=== PATIENT | female | born 1995 | race Caucasian/White ===

== ENCOUNTER 2017-09-22 09:48 | Emergency (ER) | payer BC, OTHER ==
[~2017-09-22] VITALS: Ht 170.2 cm; Wt 45.5 kg
[2017-09-22] MEDS ORDERED: POLY17PO5 PO (10:11)
[2017-09-22] MEDS ORDERED: ERYT250C8 PO (10:11)
[2017-09-22] MEDS ORDERED: METO5TAB57 PO (10:11)
[2017-09-22] MEDS ORDERED: SODIUM CHLORIDE 0.9% 1,000ML IVBOLUS ONE ×2 (10:30→11:30)
[2017-09-22] MEDS ORDERED: ACETAMINOPHEN 500 MG TABLET ONE (10:31)
[2017-09-22] MEDS ORDERED: FAMOTIDINE 20 MG/2 ML ONE (10:33)
[2017-09-22] MEDS ORDERED: ONDANSETRON 2MG/ML, 2ML ONE (10:33)
[2017-09-22 10:49] LABS: MEAN CORPUSCULAR HEMOGLOBIN 31.8 pg (27.0-34.8); MEAN CORPUSCULAR HGB CONC 33.4 g/dL (32.4-35.8); MEAN CORPUSCULAR VOLUME 95.3 fL (80-100); MEAN PLATELET VOLUME 8.1 fL (7.4-10.4); PLATELET COUNT 211 x10^3/uL (130-400); RED BLOOD COUNT 4.18 x10^6/uL (3.82-5.3); RED CELL DISTRIBUTION WIDTH 14.7 % (9.6-15.2)
[2017-09-22 10:57] VITALS: BP 101/64
[2017-09-22 11:00] LABS: ALANINE AMINOTRANSFERASE 24 U/L (12-78); ALBUMIN 3.5 g/dL (3.4-5.0); ANION GAP 7 mmol/L (5-15); CALCIUM 7.8 mg/dL (8.5-10.1); CHLORIDE 105 mmol/L (98-107); CREATININE 0.52 mg/dL (0.55-1.02)
[2017-09-22] MEDS ORDERED: ONDANSETRON 2MG/ML, 2ML IVPush ONE (11:00)
[2017-09-22] MEDS ORDERED: FAMOTIDINE 20 MG/2 ML IVPush ONE (11:00)
[2017-09-22] MEDS ORDERED: ACETAMINOPHEN 500 MG TABLET PO ONE (11:00)
[2017-09-22 11:05] LABS: ALKALINE PHOSPHATASE 61 U/L (45-117); BILIRUBIN,TOTAL 0.9 mg/dL (0.2-1.0); TOTAL PROTEIN 6.4 g/dL (6.4-8.2)
[2017-09-22 11:06] LABS: RAPID INFLUENZA A Negative (Negative); RAPID INFLUENZA B Negative (Negative)
[2017-09-22 11:10] LABS: MD YES
[2017-09-22] MEDS ORDERED: CALC1CAP8 PO (11:12)
[2017-09-22] MEDS ORDERED: DIPH12.532 PO (11:12)
[2017-09-22] MEDS ORDERED: ALEN70TA3 PO (11:12)
[2017-09-22] MEDS ORDERED: MULT-478 PO (11:12)
[2017-09-22] MEDS ORDERED: RISP0.5T3 PO (11:12)
[2017-09-22] MEDS ORDERED: PHOS118S17 PO (11:12)
[2017-09-22] MEDS ORDERED: LORA1TAB PO (11:12)
[2017-09-22] MEDS ORDERED: ACET325T14 PO (11:12)
[2017-09-22] MEDS ORDERED: MIRT45TA PO (11:12)
[2017-09-22] MEDS ORDERED: FERR324T8 PO (11:12)
[2017-09-22 11:13] LABS: BAND#(MANUAL) 0.68 x10^3/uL; BANDS%(MANUAL) 13 % (0-7); SEG#(MANUAL) 4.47 x10^3/uL (1.8-6.8); SEGS% (MANUAL) 86 % (42-75)
[2017-09-22 11:14] LABS: MONOS#(MANUAL) 0.05 x10^3/uL (0.3-2.7); MONOS% (MANUAL) 1 % (2-9)
[2017-09-22 11:15] LABS: <PLATELET ESTIMATE> ADEQUATE; <PLT MORPHOLOGY> NORMAL PLT MORPH; ANISOCYTOSIS 1+
[2017-09-22 11:39] LABS: MICROSCOPIC NOT IND
[2017-09-22 11:45] LABS: CULTURE INDICATED? NO
[2017-09-22] MEDS ORDERED: SODIUM CHLORIDE FLUSH 10ML SYR IVF ONE (12:00)
[2017-09-22] MEDS ORDERED: OMNIPAQUE 350 MG/ML, 100ML BOTTLE ONE (12:27)
== END 2017-09-22 13:31 | disposition home or self-care (01) ==
LOC: ED 10:52
DX: A08.4 Viral intestinal infection, unspecified (principal)
CPT/HCPCS: 36415; 74177; 80053; 81003; 83690; 84703; 85025; 87040; 87400; 96361; 96374; 96375; 99285; J2405; J7030; Q9967; S0028